=== PATIENT | female | born 1955 | race Caucasian/White ===

== ENCOUNTER → 2017-01-28 | Outpatient (CLI) | payer OTHER ==
[~2017-01-28] MED LIST: ACETAMINOPHEN325 M1 PO; ADVIL COLD & S1 EAC1 PO; ADVIL200 M2 PO; AMANTADINE100 M1 PO; AMPYRA10 MG PO; APAP650 PO; ARIMIDEX1 MG PO; B12INJ PO; BACLOFEN 10MG T10 MG PO; BACTRIM 400-801 EACH PO; BACTRIM DS TAB1 EACH PO; BIOTIN300 MCG PO; BREVICON PO; CALCIUM 600 +1 EA11 PO; COLACE100 MG PO; DEXADRINE PO; DEXTROAMP-AMPHE15 MG PO; DEXTROAMPHETAMI15 MG PO; DEXTROSTAT10 MG PO; DYAZIDE 37.5-21 EACH PO; FLORINEF ACETA0.1 MG PO; HYDROCODONE-AP1 EAC6 PO; IBUPROFEN 200200 M1 PO; IBUPROFEN 400400 M2 PO; IRON325 PO; KEFLEX500 MG PO; LIORESAL 10 MG10 MG PO; MAXIDE PO; MIDODRINE HCL10 MG PO; MULTI VITAMIN1 EACH PO; OXYTROL PATCH TD; PAXIL 20 MG TAB20 MG PO; PAXIL10 MG PO; SENNA-S TABLET1 EACH PO; TOVIAZ8 MG PO; TRAMADOL 50 MG50 MG PO; TYLENOL325 MG PO; TYSABRI IV; VITAMIN B-121000 MCG PO; VITAMIN D2000 UNI1 PO; VITAMIN D34000 UNIT PO; [UNRECOGNIZED DRUG - OTHER] PO; [UNRECOGNIZED DRUG - OTHER] PO; [UNRECOGNIZED DRUG - OTHER] PO; [UNRECOGNIZED DRUG - OTHER] PO
[2017-01-28 14:44] LABS: ABSOLUTE NEUTROPHILS 4.9 thou/uL (1.4-8.2); BASOPHILS 0.7 % (0.0-2.0); EOSINOPHILS 1.9 % (0.0-3.0); HEMATOCRIT 40.9 % (37.0-47.0); HEMOGLOBIN 13.5 gm/dL (12.0-15.0); MCH 29.1 pg (26.0-34.0); MCHC 33.1 g/dL (28.0-37.0); MONOCYTES 6.8 % (1.0-8.0); PLATELET COUNT 234 thou/uL (150-400); POLYS 65.6 % (36.0-66.0); RBC 4.64 mil/uL (4.20-5.00); RDW 13.4 % (10.5-14.5); WBC 7.4 thou/uL (4.0-11.0)
[2017-01-28 14:49] LABS: MANUAL DIFF NO
[2017-01-28 14:58] LABS: ALBUMIN 3.9 g/dL (3.4-5.0); CALCIUM 9.6 mg/dL (8.5-10.1); CREATININE 0.8 mg/dL (0.6-1.0); POTASSIUM 3.6 mmol/L (3.5-5.1); TOTAL BILIRUBIN 0.3 mg/dL (<0.1-1.0); TOTAL PROTEIN 7.8 g/dL (6.4-8.2)
[2017-01-28 19:13] LABS: HEP B SURFACE Ab(ANTI-HBS Reactive (())
== END ==
LOC: MRI 07:02
PROVIDERS: Psychiatry & Neurology Neurology
DX: M50.20 Other cervical disc displacement, unspecified cervical region (principal); M51.24 Other intervertebral disc displacement, thoracic region; C50.919 Malignant neoplasm of unspecified site of unspecified female breast; G35 Multiple sclerosis; R53.1 Weakness

== ENCOUNTER → 2017-03-06 | Outpatient (CLI) | payer OTHER ==
--- NOTE | ~2017-03-06 | 2DMMODE ---
[facility] [address] [place] [address] 2 D/M-MODE ECHOCARDIOGRAM Name: MICHAELAJH N Room #: REG [facility]#: [id number] Admission: 03/06/17 Attend Phys: Orin Phillip Discharge: Date of : 55 Date of Service: 03/06/17 1421 Report #: [id number] THIS REPORT FOR: //name// APPROVED REPORT Study performed: 03/06/2017 13:05:08 EXAM: Comprehensive 2D, Doppler, and color-flow Echocardiogram Patient Location: Out-Patient Status: routine Other Information Study Quality: Adequate Indications Hypertension/HDD 2D Dimensions RVDd: 31.31 mm LVEF(%): 78.66 (>50%) IVSd: 10.19 (7-11mm) LVOT Diam: 21.39 (18-24mm) LVDd: 43.19 mm PWd: 9.70 (7-11mm) Ascending Ao: 33.67 (22-36mm) LVDs: 22.89 (25-40mm) Aortic Root: 30.87 mm Gu[place]ama's LVEF: 78.66 % Volumes Left Atrial Volume (Systole) Single Plane 4CH: 27.53 mL Single Plane 2CH: 28.47 mL LA ESV Index: 20.00 mL/m2 LV Strain GL Strain(%): 3.00 Aortic Valve AoV Peak Darío.: 1.40 m/s AO Peak Gr.: 7.79 mmHg LVOT Max P.06 mmHg LVOT Max V: 1.01 m/s TERESITA Vmax: 2.59 cm2 Mitral Valve E/A Ratio: 0.7 MV Decel. Time: 309.26 ms MV E Max Darío.: 0.75 m/s [facility] [place] [address] 2 D/M-MODE ECHOCARDIOGRAM Name: JH JENNINGS Room #: [facility]#: [id number] Admission: 03/06/17 Attend Phys: Orin Phillip Discharge: Date of : 55 Date of Service: 03/06/17 1421 Report #: [id number] MV A Darío.: 1.07 m/s MV PHT: 89.69 ms IVRT: 106.11 ms Pulmonary Valve PV Peak Darío.: 1.20 m/s PV Peak Gr.: 5.80 mmHg Pulmonary Vein P Vein S: 0.60 m/s P Vein A: 0.36 m/s P Vein D: 0.34 m/s P Vein A Dur.: 96.9 msec P Vein S/D Ratio: 1.76 Tricuspid Valve TR Peak Darío.: 2.61 m/s RAP Estimate: 5.00 mmHg TR Peak Gr.: 27.29 mmHg PA Pressure: 32.00 mmHg Left Ventricle The left ventricle is normal size. There is normal LV segmental wall motion. There is normal left ventricular wall thickness. The left ventricular systolic function is normal. The left ventricular ejection fraction is within the normal range. LVEF is 60-65%. Grade I - abnormal relaxation pattern. Right Ventricle The right ventricle is normal size. The right ventricular systolic function is normal. Atria The left atrium size is normal. The right atrium size is normal. Aortic Valve Aortic valve is calcified. No aortic regurgitation is present. There is no aortic valvular stenosis. Mitral Valve The mitral valve is normal in structure. Trace mitral regurgitation. No evidence of mitral valve stenosis. Tricuspid Valve The tricuspid valve is normal in structure. There is trace to mild tricuspid regurgitation. The right atrial pressure is estimated at 5 mmHg. There is mild pulmonary hypertension with an estimated PAP of [address] [address] 2 D/M-MODE ECHOCARDIOGRAM Name: JH JENNINGS [id number] Ad[facility]: 03/06/17 Attend Phys: Orin Phillip Discharge: Date of : 55 Date of Service: 03/06/17 1421 Report #: [id number] Pulmonic Valve The pulmonary valve is normal in structure. Trace pulmonic regurgitation. Great Vessels The aortic root is normal in size. The ascending aorta is normal in size. IVC is normal in size and collapses >50% with inspiration. Pericardium There is no pericardial effusion. <Conclusion> The left ventricle is normal size. LVEF is 60-65%. Aortic valve is calcified. No aortic regurgitation is present. There is no aortic valvular stenosis. The mitral valve is normal in structure. Trace mitral regurgitation. The tricuspid valve is normal in structure. There is trace to mild tricuspid regurgitation. The right atrial pressure is estimated at 5 mmHg. There is mild pulmonary hypertension with an estimated PAP of 32 mmHg. The pulmonary valve is normal in structure. Trace pulmonic regurgitation. <ELECTRONICALLY SIGNED> By: Jung Kerr MD 03/06/17 [id number] Jung Kerr MD /INF
== END ==
LOC: ULTRA 08:21
DX: R09.89 Other specified symptoms and signs involving the circulatory and respiratory systems (principal)